=== PATIENT | male | born 1980 ===

== ENCOUNTER 2017-02-24 18:29 | Emergency (ER) | payer OTHER ==
[2017-02-24 18:29] VITALS: BMI 24.9
[2017-02-24 18:49] VITALS: TEMP 97.8; O2SAT 98
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
[2017-02-24 20:05] VITALS: BP 132/75; PULSE 68; RESP 17
== END 2017-02-24 20:06 | disposition home or self-care (01) ==
LOC: C.ER 18:29
DX: S33.5XXA Sprain of ligaments of lumbar spine, initial encounter (principal); V43.62XA Car passenger injured in collision with other type car in traffic accident, initial encounter